=== PATIENT | male | born 1975 | race Caucasian/White ===

== ENCOUNTER 2019-10-28 21:52 | Emergency (ER) | payer BC, SELFPAY ==
[2019-10-28 21:57] VITALS: BP 133/90; PULSE 50; RESP 20; TEMP 36.7; O2SAT 100
--- NOTE | 2019-10-28 22:05 | ED.EYEPROB ---
HPI - Eye Problem General Chief complaint: Eye Problems Stated complaint: HIT IN EYE WITH FINGER Time Seen by Provider: 10/28/19 22:05 Source: patient and RN notes reviewed Mode of arrival: other Limitations: no limitations History of Present Illness HPI Narrative: Pt is a 44 y/o male who presents to the ED with c/o left eye pain that began an hour ago after playing volleyball. Pt poked himself in the eye with a dirty finger while playing volleyball. Pt notes that he feels like something is stuck in his left eye. Pt's left eye is erythematous. Pt reports photophobia, but denies a headache. chief complaint: eye pain Onset (ago): hour(s) (1) Onset description: sudden Duration: constant Location: left eye Eye Symptoms: redness and foreign body sensation Place: street/outdoors Mechanism: direct trauma Context: other (poked eye while playing volleyball) Associated symptoms: other (photophobia) Related Data Allergies Allergy/AdvReac Type Severity Reaction Status Date / Time No Known Allergies Allergy Unverified 07/05/16 07:28 Review of Systems Review of Systems: All systems reviewed & are unremarkable except as noted in HPI and below Eyes: Eyes: Reports eye pain (in left eye) and Reports photophobia Neurologic: Denies headache(s) PMFSH Past Medical History Medical History (Updated 10/28/19 @ 22:40 by Sena Tao MD) Dry eyes Right renal mass Surgical History Surgical History (Updated 10/28/19 @ 22:13 by Niru Villalta) No history of previous surgery Family History Family History (Updated 06/15/16 @ 10:40 by DOCTOR UNKNOWN) Mother Diabetes mellitus Family history of elevated blood lipids Father Cerebrovascular accident Family history of malignant neoplasm of esophagus Other Family history of kidney disease Hypertension Social History Social History Smoking status: Never smoker Alcohol intake: current Exam Narrative: Exam Narrative: General appearance: Well-developed, well-nourished Skin: Normal color Head: Normocephalic, nontraumatic Eyes: Clear conjunctiva, left eye showed excessive tears, obvious lower cornea scratch 3 x 2 mm ENT: Oropharynx normal, ears normal, nose normal Neck: Supple, nontender Chest and respiratory: Airway patent, no respiratory distress, no accessory muscle use Heart: Regular rate/rhythm Course Course Emergency Course: Improving Vital Signs Vital signs: Vital Signs Temperature 36.7 C 10/28/19 21:57 Pulse Rate 50 L 10/28/19 21:57 Respiratory Rate 10/28/19 21:57 Blood Pressure 133/90 10/28/19 21:57 Pulse Oximetry 100 10/28/19 21:57 Temperature 36.7 C 10/28/19 21:57 Pulse Rate 50 L 10/28/19 21:57 Respiratory Rate 10/28/19 21:57 Blood Pressure 133/90 10/28/19 21:57 Pulse Oximetry 100 10/28/19 21:57 Procedures Other Procedure Procedure 1: Other Procedure: Left eye corneal scratch, tetracaine eyedrops, fluorescein strip, Jones lamp, 3 x 2 mm corneal abrasion at the lower half of the cornea. Intact eye globe. MDM - Eye Problem MDM Narrative Medical decision making narrative: Corneal abrasion is my concern. My plan to use tetracaine eyedrops, fluorescein strip, further plan to follow Critical Care Time Critical Care Time Critical Care Time: No Discharge Plan Discharge Clinical Impression: Corneal abrasion Qualifiers: Encounter type: initial encounter Laterality: left Qualified Code(s): S05.02XA - Injury of conjunctiva and corneal abrasion without foreign body, left eye, initial encounter Patient Disposition: Home, Self-Care Condition: Improved Instructions: Antibiotic Form, Corneal Abrasion (ED) A
[2019-10-28 23:15] VITALS: BP 132/80; PULSE 80; RESP 20; TEMP 36.7; O2SAT 99
[2019-10-28] MEDS: FLUORESCEIN SOD 1 MG/STRIP (23:15)
[2019-10-28] MEDS: TETRACAINE HCL 0.5% OPHTH SOLN 4 ML BTL 1 DROP (23:15)
[2019-10-28] MEDS: DACRIOSE EYE IRRIGATION 118 ML BOTTLE (23:15)
== END 2019-10-28 23:16 | disposition home or self-care (01) ==
PROVIDERS: Emergency Provider Emergency Medicine
DX: S05.02XA Injury of conjunctiva and corneal abrasion without foreign body, left eye, initial encounter (principal); W22.8XXA Striking against or struck by other objects, initial encounter; Y93.68 Activity, volleyball (beach) (court)
CPT/HCPCS: 99283; A9270

== ENCOUNTER → 2020-06-15 14:55 | Outpatient (CLI) | payer BC, SELFPAY ==
--- NOTE | ~2020-06-15 | CT_ITS ---
EXAMINATION: CT abdomen pelvis wo/w con DATE: 06/15/2020 15:30 INDICATION: Right renal cell cancer. Partial right nephrectomy. TECHNIQUE: Computed tomography (CT) of the abdomen and pelvis was performed without and with 100 cc O mnipaque 350 intravenous contrast. The dose-length product was 732.09 mGy-cm. Automated exposure cont rol and iterative reconstruction technique were employed. COMPARISON: CT dated 05/31/2019. FINDINGS: Lung bases are unremarkable. Heart size normal. No pleural or pericardial effusions. Status post right partial nephrectomy. The liver, spleen, pancreas, adrenal glands and kidneys are otherwis e unremarkable. Nonobstructive bowel gas pattern. Gallbladder is present. No lymphadenopathy. No susp icious osteolytic or osteoblastic lesions. No free air or free fluid. IMPRESSION: 1. No evidence for residual/recurrent malignancy. Status post partial right nephrectomy. Reviewed, dictated and finalized at location A. IMPRESSION: 1. No evidence for residual/recurrent malignancy. Status post partial right nep hrectomy.
--- NOTE | ~2020-06-15 | XR_ITS ---
EXAMINATION: XR chest 2V 06/15/2020 15:48 INDICATION: Malignant neoplasm of the right kidney. PROCEDURE: 2 view chest COMPARISON: Comparison to multiple prior studies sequentially, with oldest reviewed study dated 10/2016. FINDINGS: The lungs are clear. The cardiomediastinal silhouette is within normal limits. There are no pleural effusions. There is no pneumothorax suspected. IMPRESSION: 1: NO ACUTE CARDIOPULMONARY DISEASE. Reviewed, dictated and finalized at location A.
[2020-06-15 15:19] LABS: Estimated Glomerular Filt Rate > 60
== END ==
PROVIDERS: Visit Provider Urology
DX: C64.1 Malignant neoplasm of right kidney, except renal pelvis (principal)
CPT/HCPCS: 71046; 74178; Q9967

== ENCOUNTER 2021-03-16 16:59 | Emergency (ER) | payer BC, SELFPAY ==
[2021-03-16 17:02] VITALS: BP 117/82; PULSE 54; RESP 12; TEMP 36.8; O2SAT 100
--- NOTE | 2021-03-16 17:11 | ED.URI ---
HPI - URI/Sore Throat General Chief Complaint: Upper Respiratory Infection Stated Complaint: COLD SYMPTOMS Time Seen by Provider: 03/16/21 17:11 Source: patient and RN notes reviewed Mode of arrival: ambulatory Limitations: no limitations History of Present Illness HPI Narrative: 46 year old male presents with concern for 10-day history of nasal congestion, rhinorrhea. Reports symptoms have been improving, however his left ear has developed pressure and discomfort. He denies drainage from the ear. He denies fever, body aches, chills, sweats. Reports occasional cough. Denies any [id number] intervention. Reports he has been vaccinated for Covid and has not had any known exposure. MD elicited complaint: nasal congestion Related Data Allergies Allergy/AdvReac Type Severity Reaction Status Date / Time No Known Allergies Allergy Verified 03/16/21 17:02 Review of Systems Review of Systems: Narrative: CONSTITUTIONAL: Denies malaise, chills, sweats, or fever. EYES: Denies visual changes, redness, or discharge. ENT: Reports rhinorrhea, congestion, left otalgia. Denies sinus pain, otalgia and sore throat. CARDIOVASCULAR: Denies chest pain, palpitations, or edema. RESPIRATORY: Reports cough. Denies dyspnea. GASTROINTESTINAL: Denies abdominal pain, nausea, vomiting, diarrhea SKIN: Denies rash or itching. MUSCULOSKELETAL: Denies myalgia. NEUROLOGIC: Denies headache. All systems reviewed & are unremarkable except as noted in HPI and below PMFSH Past Medical History Medical History Dry eyes Right renal mass Urachal cyst Surgical History Surgical History H/O partial nephrectomy H/O vasectomy Family History Family History Mother Diabetes mellitus Father , Age 60 of Esophageal Cancer Kidney disease Grandparent , Age 81 of Non Hodgkins Lymphoma Diverticulitis Grandparent , Age 82 of Natural Causes No problems noted. Grandparent , Age 87 of Ovarian Cancer Diabetes mellitus History of multiple strokes Grandparent , Age 89 of Aortic Aneurysm Emphysema, unspecified Pernicious anemia Diabetes mellitus Other Family history of kidney disease Hypertension Social History Social History Smoking status: Never smoker Alcohol intake: current Drinks per week: 2 Alcohol use details: occasionally, beer, bourbon Substance use: never Comments At time of signature, agree with nursing past medical, surgical, social and family history. There is no relevant family history pertinent to the presenting complaint Exam Narrative: Exam Narrative: GENERAL: Well-appearing, well-nourished, and in no acute distress. HEAD: Normocephalic EYES: PERRLA, conjunctivae clear ENT: Nares clear, turbinates pink, no discharge. Mucous membranes moist. TM pearly mir with sharp light reflex bilaterally; no tragal tenderness. Oropharynx not erythematous without lesions. Tonsils not enlarged and without exudate, no drooling, no hoarseness, no trismus, uvula midline. NECK: Supple. No lymphadenopathy CHEST: Clear to auscultation, breath sounds equal. No wheezing, rhonchi, rales, or stridor. No respiratory distress, speaks in full sentences. HEART: Regular rate and rhythm. No murmur heard. SKIN: Warm, dry, no rash. NEURO: Alert and oriented x3. PSYCH: Normal mood and affect Course Course Emergency Course: Patient is aware of diagnosis, understands and agrees to treatment plan. Anticipatory guidance given. Patient agrees to follow-up as directed and is aware of reasons to seek care at the emergency department. Portions of this record may have been created with voice recognition software Vital Signs Vital si
== END 2021-03-16 17:30 | disposition home or self-care (01) ==
PROVIDERS: Emergency Provider Nurse Practitioner; PCP Internal Medicine
DX: J06.9 Acute upper respiratory infection, unspecified (principal); Z20.822 Contact with and (suspected) exposure to COVID-19; Z90.5 Acquired absence of kidney; Z98.52 Vasectomy status
CPT/HCPCS: 87426; 99213; C9803; G0463

== ENCOUNTER 2022-04-29 08:37 | Outpatient (CLI) | payer BC, SELFPAY ==
[2022-04-29 20:51] LABS: Alanine Aminotransferase 24 U/L (6-50); Albumin Level 4.7 g/dL (3.5-5.1); Alkaline Phosphatase 57 U/L (38-126); Anion Gap 10 mmol/L (8-16); Aspartate Amino Transferase 28 U/L (17-59); Bilirubin,Total 1.8 mg/dL (0.2-1.3); Blood Urea Nitrogen 18 mg/dL (9-20); Calcium 9.7 mg/dL (8.4-10.2); Carbon Dioxide 28 mmol/L (22-30); Chloride 106 mmol/L (98-107); Cholesterol 171 mg/dL (0-200); Estimated Glomerular Filt Rate > 60; Glucose 77 mg/dL (65-110); HDL Direct 47 mg/dL; Potassium 4.2 mmol/L (3.4-5.0); Sodium 144 mmol/L (137-145); Triglycerides 76 mg/dL (<150)
[2022-04-29 21:17] LABS: LDL Cholesterol Direct 95 mg/dL
== END 2022-04-29 08:38 | disposition home or self-care (01) ==
LOC: ANHGOSHLAB 08:38
PROVIDERS: PCP Family Medicine; Visit Provider Family Medicine
DX: Z13.228 Encounter for screening for other metabolic disorders (principal); Z13.220 Encounter for screening for lipoid disorders
CPT/HCPCS: 36415; 80053; 80061

== ENCOUNTER 2022-05-06 15:45 | Outpatient (CLI) | payer BC, SELFPAY ==
--- NOTE | ~2022-05-06 | US_ITS ---
EXAMINATION: US soft tissue groin RT DATE: 05/06/2022 16:16 INDICATION: Right groin pain. TECHNIQUE: Multiple grayscale and Doppler ultrasound images of the right inguinal region were obtaine d. COMPARISON: CT abdomen and pelvis 06/15/2020 FINDINGS: There is no abnormal mass or lymphadenopathy in right inguinal region. No hernia. IMPRESSION: 1. No abnormality in right inguinal region. Reviewed, dictated and finalized at location A.
== END 2022-05-06 15:46 | disposition home or self-care (01) ==
PROVIDERS: PCP Family Medicine; Visit Provider Family Medicine
DX: R10.31 Right lower quadrant pain (principal)
CPT/HCPCS: 76882

== ENCOUNTER 2022-05-26 15:10 | Outpatient (CLI) | payer BC, SELFPAY ==
--- NOTE | ~2022-05-26 | CT_ITS ---
EXAMINATION: CT abdomen pelvis wo/w con DATE: 05/26/2022 16:00 INDICATION: Malignant neoplasm of the right kidney. TECHNIQUE: Computed tomography (CT) of the abdomen and pelvis was performed without and with 100 cc O mnipaque 350 intravenous contrast. The dose-length product was 535.43 mGy-cm. Automated exposure cont rol and iterative reconstruction technique were employed. COMPARISON: Comparison to multiple prior studies sequentially, with oldest reviewed study dated 05/22. FINDINGS: Lung bases are unremarkable. Heart size normal. No significant pleural or pericardial effus ion. No significant vascular abnormality. The liver, spleen, pancreas, adrenal glands and left kidney are unremarkable. Status post right partial nephrectomy. Nonobstructive bowel gas pattern. Normal ap pendix. No acute osseous abnormality. No free air or free fluid. No focal lytic or blastic lesions. G allbladder is present. No abnormal pelvic masses or fluid collections. No evidence for ventral or ing uinal hernia. IMPRESSION: 1. Status post partial right nephrectomy without evidence for residual/recurrent malignancy. Reviewed, dictated and finalized at location A. IMPRESSION: 1. Status post partial right nephrectomy without evidence for residual/recurren t malignancy.
--- NOTE | ~2022-05-26 | XR_ITS ---
EXAMINATION: XR chest 2V 05/26/2022 15:35 INDICATION: Malignant neoplasm of the right kidney PROCEDURE: 2 view chest COMPARISON: Comparison to multiple prior studies sequentially, with oldest reviewed study dated 01/2017. FINDINGS: The lungs are clear. The cardiomediastinal silhouette is within normal limits. There are no pleural effusions. There is no pneumothorax suspected. IMPRESSION: 1: NO ACUTE CARDIOPULMONARY DISEASE. Reviewed, dictated and finalized at location A.
== END 2022-05-26 15:11 | disposition home or self-care (01) ==
PROVIDERS: PCP Family Medicine; Visit Provider Urology
DX: C64.1 Malignant neoplasm of right kidney, except renal pelvis (principal)
CPT/HCPCS: 71046; 74178; Q9967

== ENCOUNTER 2022-07-01 07:58 | Outpatient (CLI) | payer BC, SELFPAY ==
[2022-07-01 18:54] LABS: Prostate Specific Antigen 0.8 ng/mL (< OR = 4.0)
== END 2022-07-01 07:59 | disposition home or self-care (01) ==
LOC: ANHGOSHLAB 07:59
PROVIDERS: PCP Family Medicine; Visit Provider Family Medicine
DX: Z12.5 Encounter for screening for malignant neoplasm of prostate (principal)
CPT/HCPCS: 36415; 84153; G0103

== ENCOUNTER → 2022-09-09 13:38 | Outpatient (CLI) | payer BC, SELFPAY ==
--- NOTE | ~2022-09-09 | MR_ITS ---
EXAMINATION: MR pelvis wo/w con DATE: 09/09/2022 14:29 INDICATION: Right lower quadrant and groin pain. Evaluate for hernia TECHNIQUE: Magnetic resonance imaging (MRI) of the pelvis was performed without intravenous contrast. Sequences included axial T1-weighted FSE, axial T2-weighted FS FSE, coronal T1-weighted FSE, coronal T2-weighted FS FSE, sagittal T1-weighted FSE and sagittal T2-weighted FS FSE. Precontrast axial T1-w eighted FS FSE and post contrast axial, sagittal and coronal T1-weighted FS FSE were also obtained. COMPARISON: CT dated 05/26/2022 FINDINGS: No inguinal hernias. Tiny right hydrocele. Prostate, bladder and visualized portion of the bowels are unremarkable. No pathologically enlarged pelvic or inguinal lymphadenopathy. There is bilateral decr eased anterosuperior femoral/head neck offset with mild cystic change at the bilateral femoral head n magnolia junctions which suggests possibility of cam-type femoral acetabular impingement. There appears be linear fluid signal intensity tear at the superolateral to anterosuperior right acetabular labrum al though sensitivity and specificity are lower than on a standard small [id number] MRI of the hip. IMPRESSION: 1. No inguinal hernia. 2. Likely tear of the right acetabular labrum which given the morphology and changes at the bilateral femoral head neck junction suggests this may represent sequela of cam-type femoral acetabular imping ement. Reviewed, dictated and finalized at location A. GER AUDIT IMPRESSION: 1. No inguinal hernia. 2. Likely tear of the right acetabular labrum which given the morphology and ch anges at the bilateral femoral head neck junction suggests this may represent s equela of cam-type femoral acetabular impingement.
== END ==
PROVIDERS: PCP Surgery; Visit Provider Surgery
DX: R10.31 Right lower quadrant pain (principal)
CPT/HCPCS: 72197; A9577

== ENCOUNTER 2022-09-16 14:01 | Outpatient (CLI) | payer BC, SELFPAY ==
--- NOTE | ~2022-09-16 | XR_ITS ---
EXAMINATION: XR hip RT min 3V w AP pelvis INDICATION: Acetabular tear TECHNIQUE: AP view the pelvis and three views of the right hip are obtained. COMPARISON: None available FINDINGS: No fracture, dislocation, or subluxation. The bones, soft tissues, and joint spaces are nor mal. IMPRESSION: 1. No acute osseous abnormality. Reviewed, dictated and finalized at location F. E WORKER
== END 2022-09-16 14:02 | disposition home or self-care (01) ==
PROVIDERS: PCP Family Medicine; Visit Provider Surgery
DX: S73.199A Other sprain of unspecified hip, initial encounter (principal); X58.XXXA Exposure to other specified factors, initial encounter
CPT/HCPCS: 73502